=== PATIENT | female | born 1995 | race African-American/Black ===

== ENCOUNTER 2020-10-05 11:57 | Emergency (ER) | payer OTHER ==
[~2020-10-05] VITALS: Ht 177.8 cm; Wt 92.5 kg
[2020-10-05 12:01] VITALS: BP 150/102
[2020-10-05 12:44] LABS: BASOPHILS % (AUTO) 0.2 % (0.0-2.0); EOSINOPHILS % (AUTO) 0.4 % (0.0-4.0); HEMATOCRIT 28.6 % (36-48); HEMOGLOBIN 9.5 g/dL (12.0-16.0); LYMPHOCYTES # (AUTO) 0.8 K/uL (2.5-16.5); LYMPHOCYTES % (AUTO) 7.5 % (20.5-51.1); MEAN CORPUSCULAR HEMOGLOBIN 27 pg (27-31); MEAN CORPUSCULAR HGB CONC 33 g/dL (33-37); MEAN CORPUSCULAR VOLUME 81.1 fL (80-94); MONOCYTES # (AUTO) 0.8 K/uL (0.8-1.0); MONOCYTES % (AUTO) 7.2 % (1.7-9.3); NEUTROPHILS # (AUTO) 9.3 K/uL (1.8-7.7); NEUTROPHILS % (AUTO) 84.7 % (42.2-75.2); PLATELET COUNT (AUTO) 236 K/uL (140-450); RED BLOOD CELL COUNT(AUTO) 3.52 MIL/uL (4.20-5.40); RED CELL DISTRIBUTION WIDTH 14.4 % (11.6-13.7)
[2020-10-05 13:00] LABS: ANION GAP 10.8 (8-16); CARBON DIOXIDE 24.7 mmol/L (21-32); CREATININE 0.7 mg/dL (0.6-1.3); POTASSIUM 3.5 mmol/L (3.5-5.1)
[2020-10-05] MEDS ORDERED: MAG SULF 2000 MG/WATER PREMIX 50 ML IV ONE (13:10)
[2020-10-05] MEDS ORDERED: NACL 0.9% 1,000 ML IV ONE (13:10)
[2020-10-05] MEDS ORDERED: POTASSIUM CHLORIDE 20% 40 MEQ/15 ML UDC PO ONE (13:10)
[2020-10-05 15:13] VITALS: BP 108/65
== END 2020-10-05 15:13 | disposition home or self-care (01) ==
LOC: MED 11:57
DX: R00.2 Palpitations (principal); D64.9 Anemia, unspecified; E87.6 Hypokalemia; E83.42 Hypomagnesemia; J45.909 Unspecified asthma, uncomplicated; F41.9 Anxiety disorder, unspecified; Z88.1 Allergy status to other antibiotic agents
CPT/HCPCS: 36415; 80048; 83735; 85025; 93005; 96365; 96366; 99284; J3475; J7030

== ENCOUNTER 2020-10-09 07:35 | Observation (INO) | payer OTHER, SELFPAY ==
[~2020-10-09] VITALS: Ht 177.8 cm; Wt 92.5 kg
[2020-10-09] MEDS ORDERED: FERR-212 PO (08:32)
[2020-10-09] MEDS ORDERED: PNV91TAB10 PO (08:32)
[2020-10-09] MEDS ORDERED: OSC500 PO (08:32)
--- NOTE | 2020-10-09 08:48 | NUR ---
PATIENT HAS BEEN SCREENED AND CATEGORIZED LOW NUTRITION RISK. PATIENT WILL BE SEEN WITHIN 7 DAYS OF ADMISSION. 10/15/[address]
== END 2020-10-09 13:20 | disposition home or self-care (01) ==
LOC: MLD 07:35
PROVIDERS: ADMIT Obstetrics & Gynecology; ATTEND Obstetrics & Gynecology
DX: O42.912 Preterm premature rupture of membranes, unspecified as to length of time between rupture and onset of labor, second trimester (principal); Z20.822 Contact with and (suspected) exposure to COVID-19; O26.892 Other specified pregnancy related conditions, second trimester; R10.2 Pelvic and perineal pain; O16.2 Unspecified maternal hypertension, second trimester; Z87.59 Personal history of other complications of pregnancy, childbirth and the puerperium; Z88.0 Allergy status to penicillin; Z3A.22 22 weeks gestation of pregnancy
CPT/HCPCS: 59025; 76815; 81000; 87426; G0378

== ENCOUNTER 2020-11-22 07:47 | Emergency (ER) | payer OTHER, SELFPAY ==
[~2020-11-22] VITALS: Ht 177.8 cm; Wt 100.2 kg
[~2020-11-22 07:47] MED LIST: FERR-212 PO; OSC500 PO; PNV91TAB10 PO
[2020-11-22 08:04] VITALS: BP 140/79
--- NOTE | 2020-11-22 08:45 | NUR ---
24 YEAR OLD FEMALE COMPLAINS OF POSSIBLE UTI. PT STATES THAT HER DOCTOR TOLD HER THAT SHE NEEDS TO BE EVALUATED FOR UTI. PT DENIES DYSURIA, ODOR, OR ANY ABDOMINAL PAIN. PT DENIES NAUSEA, VOMITTING DIARRHEA. PT AOX4, BREATHING EVEN AND UNLABORED, SKIN WAMR AND DRY. BED IN LOWEST POSITION, LOCKED, BED RAIL UPX1. PMH - ASTHMA ALLERGIES - AMOXICILLIN
[2020-11-22 08:49] LABS: BASOPHILS % (AUTO) 0.2 % (0.0-2.0); EOSINOPHILS # (AUTO) 0.1 K/uL (0-0.4); HEMATOCRIT 28.3 % (36-48); HEMOGLOBIN 9.4 g/dL (12.0-16.0); LYMPHOCYTES # (AUTO) 1.4 K/uL (2.5-16.5); LYMPHOCYTES % (AUTO) 12.7 % (20.5-51.1); MEAN CORPUSCULAR HEMOGLOBIN 27 pg (27-31); MEAN CORPUSCULAR HGB CONC 33 g/dL (33-37); MEAN CORPUSCULAR VOLUME 79.8 fL (80-94); MONOCYTES # (AUTO) 0.8 K/uL (0.8-1.0); NEUTROPHILS # (AUTO) 8.9 K/uL (1.8-7.7); NEUTROPHILS % (AUTO) 79.1 % (42.2-75.2); PLATELET COUNT (AUTO) 214 K/uL (140-450); RED BLOOD CELL COUNT(AUTO) 3.54 MIL/uL (4.20-5.40); RED CELL DISTRIBUTION WIDTH 13.9 % (11.6-13.7); WHITE BLOOD COUNT (AUTO) 11.3 K/uL (4.8-10.8)
[2020-11-22 08:50] LABS: APPEARANCE,URINE CLEAR (CLEAR); BILIRUBIN,URINE NEGATIVE (NEGATIVE); BLOOD, URINE NEGATIVE (NEGATIVE); COLOR,URINE YELLOW (YELLOW); LEUKOCYTE ESTERASE ,URINE NEGATIVE (NEGATIVE); NITRITE, URINE NEGATIVE (NEGATIVE); UGLUCOSE NEGATIVE (NEGATIVE)
[2020-11-22 09:17] LABS: ALBUMIN 2.7 g/dL (3.4-5.0); CARBON DIOXIDE 23.7 mmol/L (21-32); CREATININE 0.8 mg/dL (0.6-1.3); MAGNESIUM 1.6 mg/dL (1.8-2.4); POTASSIUM 3.7 mmol/L (3.5-5.1); TOTAL BILIRUBIN 0.2 mg/dL (0.0-1.0)
--- NOTE | 2020-11-22 09:30 | NUR ---
PT ALERT AND AWAKE, BREATHING EVEN AND UNLABORED. NO DISTRESS NOTED. ALL NEEDS MET AT THIS TIME.
--- NOTE | 2020-11-22 10:40 | NUR ---
Patient discharged with v/s stable. Written and verbal after care instructions about round ligament pain given and explained. Patient verbalized understanding. Ambulatory with steady gait. All questions addressed prior to discharge. Advised to follow up with PMD.
[2020-11-22 10:51] VITALS: BP 140/79
== END 2020-11-22 10:40 | disposition home or self-care (01) ==
LOC: MED 07:47
DX: O99.891 Other specified diseases and conditions complicating pregnancy (principal); O99.013 Anemia complicating pregnancy, third trimester; N13.30 Unspecified hydronephrosis; J45.909 Unspecified asthma, uncomplicated; Z3A.28 28 weeks gestation of pregnancy; Z88.1 Allergy status to other antibiotic agents; Z79.899 Other long term (current) drug therapy
CPT/HCPCS: 36415; 76770; 80053; 81003; 81025; 83735; 84100; 85025; 87086; 99284

== ENCOUNTER 2021-01-21 17:00 | Inpatient (IN) | payer OTHER, SELFPAY ==
[~2021-01-21] VITALS: Ht 177.8 cm; Wt 108.9 kg
[2021-01-21] MEDS ORDERED: TRA200 PO (17:31)
[2021-01-21 18:00] VITALS: BP 138/73
[2021-01-21] MEDS ORDERED: MORPHINE SULFATE 5 MG/ML VIAL IVP PRN (20:00)
[2021-01-21] MEDS ORDERED: METHYLERGONOVINE 0.2 MG/ML AMP IM PRN (20:00)
[2021-01-21] MEDS ORDERED: ONDANSETRON 4 MG/2 ML VIAL IVP PRN (20:00)
[2021-01-21 20:40] LABS: APPEARANCE,URINE CLEAR (CLEAR); BILIRUBIN,URINE NEGATIVE (NEGATIVE); BLOOD, URINE NEGATIVE (NEGATIVE); COLOR,URINE YELLOW (YELLOW); LEUKOCYTE ESTERASE ,URINE NEGATIVE (NEGATIVE); NITRITE, URINE NEGATIVE (NEGATIVE); PH,URINE 5.5 (5.0-9.0); UGLUCOSE NEGATIVE (NEGATIVE)
[2021-01-21 20:47] LABS: BASOPHILS % (AUTO) 0.1 % (0.0-2.0); EOSINOPHILS # (AUTO) 0.1 K/uL (0-0.4); EOSINOPHILS % (AUTO) 1.2 % (0.0-4.0); HEMATOCRIT 29.7 % (36-48); HEMOGLOBIN 9.7 g/dL (12.0-16.0); LYMPHOCYTES # (AUTO) 1.7 K/uL (2.5-16.5); LYMPHOCYTES % (AUTO) 15.2 % (20.5-51.1); MEAN CORPUSCULAR HEMOGLOBIN 26 pg (27-31); MEAN CORPUSCULAR HGB CONC 33 g/dL (33-37); MEAN CORPUSCULAR VOLUME 80.8 fL (80-94); MONOCYTES # (AUTO) 1.2 K/uL (0.8-1.0); MONOCYTES % (AUTO) 10.7 % (1.7-9.3); NEUTROPHILS % (AUTO) 72.8 % (42.2-75.2); PLATELET COUNT (AUTO) 220 K/uL (140-450); RED BLOOD CELL COUNT(AUTO) 3.68 MIL/uL (4.20-5.40); RED CELL DISTRIBUTION WIDTH 15.8 % (11.6-13.7)
[2021-01-21 20:50] LABS: URINE TOTAL PROTEIN 7.8 mg/dL (0-12)
[2021-01-21 20:57] LABS: ALBUMIN 2.4 g/dL (3.4-5.0); ANION GAP 11.4 (8-16); CARBON DIOXIDE 24.8 mmol/L (21-32); CREATININE 0.8 mg/dL (0.6-1.3); POTASSIUM 4.2 mmol/L (3.5-5.1); TOTAL BILIRUBIN 0.1 mg/dL (0.0-1.0)
[2021-01-21] MEDS: LABETALOL 200 MG TAB PO SCH (21:12)
[2021-01-21] MEDS ORDERED: OXYTOCIN 20 UNITS in LACTATED RINGERS 1,000 ML IV PRN (23:35)
[2021-01-21] MEDS ORDERED: MISOPROSTOL 200 MCG TAB VG PRN (23:35)
[2021-01-21] MEDS: LACTATED RINGERS 1,000 ML IV SCH (23:41)
[2021-01-22] MEDS: MISOPROSTOL 25 MCG TAB VG PRN ×2 (00:37→09:19)
[2021-01-22] MEDS: LACTATED RINGERS 1,000 ML IV SCH ×3 (06:57→20:56)
--- NOTE | 2021-01-22 08:44 | NUR ---
PATIENT HAS BEEN SCREENED AND CATEGORIZED LOW NUTRITION RISK. PATIENT WILL BE SEEN WITHIN 7 DAYS OF ADMISSION. 01/28/[address]
[2021-01-22] MEDS: LABETALOL 200 MG TAB PO SCH ×2 (09:18→20:57)
[2021-01-22 16:51] LABS: BARBITURATE, URINE NEGATIVE ng/ml (NEG <=200); BENZODIAZEPINE, URINE NEGATIVE ng/mL (NEG <=200); CANNABINOID, URINE NEGATIVE ng/mL (NEG <=50); COCAINE, URINE NEGATIVE ng/mL (NEG <=300); OPIATE, URINE NEGATIVE ng/mL (NEG <=2000); PHENCYCLIDINE SCREEN,URINE NEGATIVE ng/mL (NEG <=25)
[2021-01-22] MEDS ORDERED: OXYTOCIN 20 UNITS/LR PREMIX 1,000 ML IV ONE (17:22)
[2021-01-22] MEDS ORDERED: MORPHINE SULFATE 10 MG/ML VIAL ONE (23:41)
[2021-01-22 23:46] VITALS: BP 151/77
[2021-01-23] MEDS: MISOPROSTOL 25 MCG TAB VG PRN (03:05)
[2021-01-23] MEDS: LABETALOL 200 MG TAB PO SCH ×2 (09:04→21:03)
[2021-01-23 11:36] LABS: BARBITURATE, URINE NEGATIVE ng/ml (NEG <=200); BENZODIAZEPINE, URINE NEGATIVE ng/mL (NEG <=200); CANNABINOID, URINE NEGATIVE ng/mL (NEG <=50); COCAINE, URINE NEGATIVE ng/mL (NEG <=300); OPIATE, URINE POSITIVE ng/mL (NEG <=2000); PHENCYCLIDINE SCREEN,URINE NEGATIVE ng/mL (NEG <=25)
[2021-01-23] MEDS: LACTATED RINGERS 1,000 ML IV SCH (12:40)
[2021-01-23] MEDS ORDERED: GENTAMICIN PER PHARMACY MC PRN (18:00)
[2021-01-23] MEDS ORDERED: MORPHINE PRES FREE 10 MG/10 ML AMP IV ONE (18:02)
[2021-01-23] MEDS ORDERED: GENTAMICIN 80 MG in DEXTROSE 5% 100 ML IV SCH (18:30)
[2021-01-23] MEDS ORDERED: ONDANSETRON 4 MG/2 ML VIAL IVP PRN (18:40)
[2021-01-23] MEDS ORDERED: NALOXONE 0.4 MG/ML VIAL IVP PRN ×2 (18:40)
[2021-01-23] MEDS ORDERED: KETOROLAC 30 MG/ML VIAL IVP PRN (18:40)
[2021-01-23] MEDS ORDERED: oxyCODONE/APAP 5/325 MG 1 TAB TAB PO PRN (19:30)
[2021-01-23] MEDS ORDERED: MEASLES, MUMPS, AND RUBELLA 1 VIAL SQVAC ONE (19:30)
[2021-01-23] MEDS ORDERED: OXYTOCIN 20 UNITS/LR PREMIX 1,000 ML IV ONE (19:32)
[2021-01-23] MEDS: diphenhydrAMINE 50 MG/ML VIAL IVP PRN (20:00)
[2021-01-24] MEDS: diphenhydrAMINE 50 MG/ML VIAL IVP PRN (00:06)
[2021-01-24] MEDS ORDERED: OXYTOCIN 20 UNITS/LR PREMIX 1,000 ML IV ONE (04:02)
[2021-01-24] MEDS: OXYTOCIN 20 UNITS in LACTATED RINGERS 1,000 ML IV SCH ×2 (04:16→12:38)
[2021-01-24 05:55] LABS: BASOPHILS % (AUTO) 0.2 % (0.0-2.0); EOSINOPHILS # (AUTO) 0.1 K/uL (0-0.4); EOSINOPHILS % (AUTO) 0.6 % (0.0-4.0); HEMATOCRIT 26.7 % (36-48); HEMOGLOBIN 8.8 g/dL (12.0-16.0); LYMPHOCYTES # (AUTO) 1.3 K/uL (2.5-16.5); LYMPHOCYTES % (AUTO) 10.4 % (20.5-51.1); MEAN CORPUSCULAR HEMOGLOBIN 27 pg (27-31); MEAN CORPUSCULAR HGB CONC 33 g/dL (33-37); MEAN CORPUSCULAR VOLUME 80.2 fL (80-94); MONOCYTES % (AUTO) 8.2 % (1.7-9.3); NEUTROPHILS % (AUTO) 80.6 % (42.2-75.2); PLATELET COUNT (AUTO) 176 K/uL (140-450); RED BLOOD CELL COUNT(AUTO) 3.32 MIL/uL (4.20-5.40); RED CELL DISTRIBUTION WIDTH 15.7 % (11.6-13.7); WHITE BLOOD COUNT (AUTO) 12.4 K/uL (4.8-10.8)
[2021-01-24] MEDS: SIMETHICONE 80 MG TAB.CHEW PO PRN ×2 (09:03→13:37)
[2021-01-24] MEDS: LABETALOL 200 MG TAB PO SCH ×2 (09:03→20:35)
[2021-01-24] MEDS: FERROUS SULFATE 325 MG TABEC PO SCH ×2 (09:03→18:14)
[2021-01-24] MEDS: KETOROLAC 30 MG/ML VIAL IVP PRN ×2 (13:36→20:36)
[2021-01-25] MEDS: KETOROLAC 30 MG/ML VIAL IVP PRN (03:01)
[2021-01-25] MEDS: SIMETHICONE 80 MG TAB.CHEW PO PRN ×2 (09:05→18:27)
[2021-01-25] MEDS: FERROUS SULFATE 325 MG TABEC PO SCH ×2 (09:05→18:27)
[2021-01-25] MEDS: LABETALOL 200 MG TAB PO SCH ×2 (09:05→21:02)
[2021-01-25] MEDS: bisacodyL 5 MG TABEC PO PRN (09:21)
[2021-01-25] MEDS: IBUPROFEN 800 MG TAB PO PRN (18:30)
[2021-01-26] MEDS ORDERED: CAMERA MC ONE (03:15)
[2021-01-26] MEDS: IBUPROFEN 800 MG TAB PO PRN (08:48)
[2021-01-26] MEDS: FERROUS SULFATE 325 MG TABEC PO SCH (08:49)
[2021-01-26] MEDS: LABETALOL 200 MG TAB PO SCH (08:49)
[2021-01-26] MEDS: bisacodyL 5 MG TABEC PO PRN (08:50)
== END 2021-01-26 10:53 | disposition home or self-care (01) | DRG 540 ==
LOC: MLD 17:00 → OBSVTOIN 19:45 → MFCC 01-23 20:29
PROVIDERS: ADMIT Obstetrics & Gynecology; ATTEND Obstetrics & Gynecology
PROC: 3E0DXGC Introduction of Other Therapeutic Substance into Mouth and Pharynx, External Approach (ICD-10-PCS; 2021-01-22)
PROC: 10D00Z1 Extraction of Products of Conception, Low, Open Approach (ICD-10-PCS; principal; 2021-01-23 18:00)
DX: O42.92 Full-term premature rupture of membranes, unspecified as to length of time between rupture and onset of labor (principal); O10.92 Unspecified pre-existing hypertension complicating childbirth; O99.52 Diseases of the respiratory system complicating childbirth; O61.9 Failed induction of labor, unspecified; J45.20 Mild intermittent asthma, uncomplicated; Z20.822 Contact with and (suspected) exposure to COVID-19; Z3A.37 37 weeks gestation of pregnancy; Z37.0 Single live birth
CPT/HCPCS: G0378 ×3; 36415; 76815; 80053; 80305; 81003; 82570; 85025; 86592; 86886; 86900; 86901; J1200; J1580; J1885; J2270; J2405; J2590; J7060; J7120; Q0092

== ENCOUNTER 2021-01-29 16:02 | Inpatient (IN) | payer OTHER ==
[~2021-01-29] VITALS: Ht 177.8 cm; Wt 102.5 kg
[~2021-01-29 16:02] MED LIST changes: +TRA200 PO
[2021-01-29] MEDS ORDERED: MAG SULF 2000 MG/WATER PREMIX 100 ML IV ONE (16:30)
[2021-01-29] MEDS ORDERED: hydrALAZINE 20 MG/ML VIAL IVP ONE ×2 (16:30→17:20)
[2021-01-29] MEDS: LACTATED RINGERS 1,000 ML IV SCH (16:48)
[2021-01-29 17:14] LABS: BASOPHILS % (AUTO) 0.4 % (0.0-2.0); EOSINOPHILS # (AUTO) 0.2 K/uL (0-0.4); EOSINOPHILS % (AUTO) 1.7 % (0.0-4.0); HEMATOCRIT 26.7 % (36-48); HEMOGLOBIN 8.8 g/dL (12.0-16.0); LYMPHOCYTES # (AUTO) 1.8 K/uL (2.5-16.5); LYMPHOCYTES % (AUTO) 17.8 % (20.5-51.1); MEAN CORPUSCULAR HEMOGLOBIN 26 pg (27-31); MEAN CORPUSCULAR HGB CONC 33 g/dL (33-37); MEAN CORPUSCULAR VOLUME 79.9 fL (80-94); MONOCYTES # (AUTO) 0.8 K/uL (0.8-1.0); NEUTROPHILS # (AUTO) 7.1 K/uL (1.8-7.7); NEUTROPHILS % (AUTO) 72.1 % (42.2-75.2); PLATELET COUNT (AUTO) 306 K/uL (140-450); RED BLOOD CELL COUNT(AUTO) 3.35 MIL/uL (4.20-5.40); RED CELL DISTRIBUTION WIDTH 15.2 % (11.6-13.7); WHITE BLOOD COUNT (AUTO) 9.9 K/uL (4.8-10.8)
[2021-01-29] MEDS: MAG SULF 20 GM/H2O PREMIX DRIP 500 ML IV SCH (17:33)
[2021-01-29 17:37] LABS: PROTHROMBIN TIME 10.4 secs (10.8-13.4)
[2021-01-29 17:43] LABS: APPEARANCE,URINE CLEAR (CLEAR); BILIRUBIN,URINE NEGATIVE (NEGATIVE); BLOOD, URINE NEGATIVE (NEGATIVE); COLOR,URINE YELLOW (YELLOW); LEUKOCYTE ESTERASE ,URINE NEGATIVE (NEGATIVE); NITRITE, URINE NEGATIVE (NEGATIVE); PH,URINE 5.5 (5.0-9.0); UGLUCOSE NEGATIVE (NEGATIVE)
[2021-01-29 17:49] LABS: ALBUMIN 2.8 g/dL (3.4-5.0); ANION GAP 15.2 (8-16); CARBON DIOXIDE 23.8 mmol/L (21-32); TOTAL BILIRUBIN 0.2 mg/dL (0.0-1.0)
[2021-01-29 18:31] LABS: URINE TOTAL PROTEIN 3.8 mg/dL (0-12)
[2021-01-29] MEDS ORDERED: IBUPROFEN 800 MG TAB PO PRN (18:40)
[2021-01-29 19:07] VITALS: BP 176/101
[2021-01-29] MEDS: NIFEdipine 30 MG TABER PO SCH (21:00)
[2021-01-30] MEDS: MAG SULF 20 GM/H2O PREMIX DRIP 500 ML IV SCH ×2 (04:10→14:01)
[2021-01-30] MEDS: LACTATED RINGERS 1,000 ML IV SCH (05:02)
[2021-01-30] MEDS: NIFEdipine 30 MG TABER PO SCH ×2 (06:00→09:16)
[2021-01-30] MEDS: NITROFURANTOIN 100 MG CAP PO SCH ×2 (08:16→16:57)
--- NOTE | 2021-01-30 08:39 | NUR ---
PATIENT HAS BEEN SCREENED AND CATEGORIZED LOW NUTRITION RISK. PATIENT WILL BE SEEN WITHIN 7 DAYS OF ADMISSION. 02/05/[address]
== END 2021-01-30 20:15 | disposition home or self-care (01) | DRG 561 ==
LOC: MFCC 16:02
PROVIDERS: ADMIT Obstetrics & Gynecology; ATTEND Obstetrics & Gynecology
DX: O11.5 Pre-existing hypertension with pre-eclampsia, complicating the puerperium (principal); Z88.1 Allergy status to other antibiotic agents
CPT/HCPCS: 36415; 80053; 81003; 82570; 83735; 85025; 85384; 85610; 85730; J0360; J3475

== ENCOUNTER 2023-06-04 13:20 | Emergency (ER) | payer OTHER ==
[~2023-06-04] VITALS: Ht 177.8 cm; Wt 104.3 kg
[2023-06-04 13:48] VITALS: BP 122/91; PULSE 81; RESP 16; TEMP 97.1; O2SAT 100
[2023-06-04] MEDS ORDERED: FLUORESCEIN OPTH STRIP 1 MG OP SCH (14:38)
[2023-06-04] MEDS ORDERED: PROPARACAINE 0.5% OPTH 15 ML BTL OP SCH (14:39)
[2023-06-04] MEDS ORDERED: CEFD300C3 PO (16:32)
[2023-06-04] MEDS ORDERED: FLONAS NS (16:33)
== END 2023-06-04 16:47 | disposition home or self-care (01) ==
LOC: MED 13:20
DX: H57.11 Ocular pain, right eye (principal); R03.0 Elevated blood-pressure reading, without diagnosis of hypertension; J45.909 Unspecified asthma, uncomplicated; Z79.899 Other long term (current) drug therapy; Z88.0 Allergy status to penicillin
CPT/HCPCS: 99284